=== PATIENT | female | born 1990 | race Caucasian/White ===

== ENCOUNTER 2016-06-07 15:35 | Observation (INO) | payer MEDICAID ==
[2012-09-24 06:24] VITALS: BMI 25.8
[2016-06-07] MEDS ORDERED: Vaccine Screening Complete SCH (17:00)
[2016-06-07] MEDS ORDERED: Betamethasone 6 mg/mL SUSP for INJ 5 ml MDV IM ONE (18:12)
--- NOTE | 2016-06-07 18:38 | DIRPT ---
CLINICAL DATA: Decreased movement. EXAM: BIOPHYSICAL PROFILE FINDINGS: Movement: 0 time: 23 minutes Breathin Tone: 0 Amniotic Fluid: 2 Total Score: 4 IMPRESSION: Biophysical profile score is 4 out of 8, with 0 points for movement and tone. Critical Value/emergent results were called by telephone at the time of interpretation on 06/07/2016 at 6:[address] KASHIF CUEVA MD, who verbally acknowledged these results. Electronically Signed By: Kaykay Sheldon M.D. On: 06/07/2016 18:35
--- NOTE | 2016-06-07 18:51 | HISTPHYS ---
- HISTORY OF PRESENT ILLNESS Age: 26 Estimated Due Date: 07/29/16 Gestational Age: 33 : 4 Para: 1 Patient Presents to:: Labor & Delivery Presents for:: Antepartum Testing (nonreactive strip in office with history of demise), Decreased Movement Other Reason for Visit: anti gaston antibody, antiphospholipd syndrome Current : Other Complications (slightly elevated dopplers as of 06/07/16 , hx of stillbirth, anti gaston antibodies, antiphospholipid syndrome) - REVIEW OF SYSTEMS Reports/Denies: Reports: Movement (still noted). Denies: Vaginal Bleeding , Contractions, Leaking Fluid Pain: Reports: None - ALLERGIES Allergies Allergy/AdvReac Type Severity Reaction Status Date / Time No Known Allergies Allergy Verified 06/07/16 15:48 - CURRENT MEDICATIONS Home Medication List Aspirin 81 mg PO DAILY 06/07/16 [History] Enoxaparin Sodium [Lovenox] 40 mg SQ DAILY 06/07/16 [History] - PAST MEDICAL HISTORY Reports: Cardiovascular Disorders (lupus) - PAST SURGICAL HISTORY Reports: Dilation & Curettage - SOCIAL HISTORY Smoking Status: Former smoker 1 Weight: 5 10 Complications with or Delivery: Reports: Stillbirth/ Demise 2 Complications with or Delivery: Reports: SAB/Miscarriage - PHYSICAL EXAM Vital Signs:: Temperature: () HR: () RR: () BP: () Pulse Ox: () GENERAL: Alert, Oriented, Anxious CARDOVASCULAR/CHEST: Normal RESPIRATORY: Normal - CTA ABDOMEN: Gravid, Non-Distended, Non-Tender, Soft MUSCULOSKELETAL: Normal EXTERMITIES: Moves All Extremeties BRAXTON'S SIGN: negative: Bilateral Heart Rate: 130's Reactive. negative: Decelerations Contractions: Absent - ASSESSMENT (ACTIVE PROBLEMS) (1) 32 weeks gestation of Acute Z3A.32 - 32 WEEKS GESTATION OF (2) Hx of biophysical profile with non-stress test Acute Z92.89 - PERSONAL HISTORY OF OTHER MEDICAL TREATMENT (3) Prior with demise Acute O09.299 - SUPRVSN OF PREG W POOR REPRODCTV OR OBSTET HISTORY, UNSP TRI - PLAN Betamethasone, Monitoring (currently consulting [facility] for possible transfer or change in management)
--- NOTE | 2016-06-07 19:27 | PCM.DCS92 ---
- Primary/Secondary Discharge Diagnoses (1) 32 weeks gestation of Acute Z3A.32 - 32 WEEKS GESTATION OF (2) Hx of biophysical profile with non-stress test Acute Z92.89 - PERSONAL HISTORY OF OTHER MEDICAL TREATMENT (3) Prior with demise Acute O09.299 - SUPRVSN OF PREG W POOR REPRODCTV OR OBSTET HISTORY, UNSP TRI - HOSPITAL COURSE /Op Complications: None - DISCHARGE INSTRUCTIONS Discharge Disposition: Trans. to Other Hospital ([facility]) Discharge Condition: Stable Cognitive Discharge Status: Unimpaired Fuctional Discharge Status: Independent Patient Leaving with Prescriptions?: None - Diet Diet at Discharge: Other - Activity Activity: Bedrest - Instructions Call Physician for: Regular Contractions, Decreased Movement, Pain/ Redness in Calf/Leg, Rupture of Membranes, Temperature Above 100.4, Vaginal Bleeding - Incision Incision, Lacerations, or Tears: No - DC Summary Notes Discharge Medications: *See "Discharge Medication List" for a complete list of Home Medications and Discharge Medications.* Obstetric Hospital Course - Admitting Diagnosis Other Reason for Visit: anti gaston antibody, antiphospholipd syndrome Gestational Age: 33
== END 2016-06-07 21:45 | disposition short-term general hospital (02) ==
LOC: LD 15:35 → MASU 18:05
PROVIDERS: ADMIT Obstetrics & Gynecology; ATTEND Obstetrics & Gynecology
DX: O36.8130 Decreased fetal movements, third trimester, not applicable or unspecified (principal); O09.293 Supervision of pregnancy with other poor reproductive or obstetric history, third trimester; Z3A.32 32 weeks gestation of pregnancy
CPT/HCPCS: 76819; 96372; J0702